=== PATIENT | female | born 1980 ===

== ENCOUNTER 2018-09-09 00:02 | Emergency (ER) | payer OTHER ==
[~2018-09-09] VITALS: Ht 157.5 cm; Wt 62.1 kg
== END 2018-09-10 09:06 | disposition home or self-care (01) ==
LOC: ER 00:02
DX: K80.20 Calculus of gallbladder without cholecystitis without obstruction (principal); N83.292 Other ovarian cyst, left side; N93.8 Other specified abnormal uterine and vaginal bleeding

== ENCOUNTER 2019-06-25 22:22 | Emergency (ER) | payer OTHER ==
[~2019-06-25] VITALS: Ht 157.5 cm; Wt 62.1 kg
[2019-06-26] MEDS ORDERED: CARAFATE1 GM PO (01:20)
[2019-06-26] MEDS ORDERED: PEPCID AC20 MG PO (01:20)
== END 2019-06-26 03:13 | disposition home or self-care (01) ==
LOC: ER 22:22
DX: K52.89 Other specified noninfective gastroenteritis and colitis (principal)

== ENCOUNTER 2022-01-05 04:02 | Emergency (ER) | payer OTHER ==
[~2022-01-05] VITALS: Ht 157.5 cm; Wt 54.4 kg
[~2022-01-05 04:02] MED LIST: CARAFATE1 GM PO; PEPCID AC20 MG PO
== END 2022-01-05 12:32 | disposition home or self-care (01) ==
LOC: ER 04:02
DX: K81.9 Cholecystitis, unspecified (principal); R10.9 Unspecified abdominal pain